=== PATIENT | male | born 1985 | race Hispanic/Latino ===

== ENCOUNTER 2017-07-06 10:53 | Outpatient (CLI) | payer OTHER | END 2017-07-06 10:54 | disposition home or self-care (01) | LOC: BICRAD 10:53 | PROVIDERS: ATTEND Internal Medicine | DX: M25.562 Pain in left knee (principal); M79.89 Other specified soft tissue disorders ==

== ENCOUNTER 2017-07-20 14:34 | Outpatient (CLI) | payer OTHER | END 2017-07-20 14:35 | disposition home or self-care (01) | LOC: BICRAD 14:34 | PROVIDERS: ATTEND Internal Medicine | DX: F17.200 Nicotine dependence, unspecified, uncomplicated (principal) | CPT/HCPCS: 71046 ==